=== PATIENT | male | born 1990 | race American Indian/Alaskan Native ===

== ENCOUNTER 2019-04-12 06:09 | Emergency (ER) | payer OTHER ==
[2019-04-12] MEDS ORDERED: HYDROmorphone 0.5 MG/0.5 ML Syringe IVPUSH ONE (06:44)
[2019-04-12] MEDS ORDERED: Ondansetron 4 MG/2 ML SDV IVPUSH ONE (06:44)
[2019-04-12] MEDS ORDERED: Sodium Chloride 0.9% 1,000 ML IV SCH (06:45)
--- NOTE | 2019-04-12 06:49 | EDM.PDOC ---
ED HPI GENERAL MEDICAL PROBLEM - General Chief Complaint: Laceration Stated Complaint: [facility] Time Seen by Provider: 04/12/19 06:27 Source of Information: Reports: Patient History Limitations: Reports: Altered Mental Status (Sleepy - needed to be woken numerous times to answer questions) - History of Present Illness INITIAL COMMENTS - FREE TEXT/NARRATIVE: The patient states that he was washing dishes at home around 05:30 to 06:00 this morning, when he accidentally cut his right palm. He states that the knife "came out of nowhere". He is otherwise uninjured. The patient is inordinately sleepy, and fell asleep during my questioning numerous times, requiring waking up in order to finish the history. He states that he slept last night, and got up around 05:00, therefore it is not clear why he is so sleepy. He denies recent alcohol or drug use. His last oral solid food was around 19:00 last night. He states that his last tetanus vaccination was this year. The patient does not have a PCP. Treatments [employer]: Reports: IV/IO, Other (see below) Other Treatments [employer]: Fentanyl 100 mcg, 400 cc NS Right Hand Pain Score (Numeric/FACES): 8 - Related Data Allergies Allergy/AdvReac Type Severity Reaction Status Date / Time No Known Allergies Allergy Verified 04/12/19 06:13 Home Meds: Home Meds . [No Known Home Meds] 04/12/19 [History] Past Medical History - Past Health History Medical/Surgical History: Denies Medical/Surgical History Social & Family History - Tobacco Use Smoking Status *Q: Former Smoker Years of Tobacco use: 1 Packs/Tins Daily: 0.3 Month/Year Tobacco Last Used: Quit February 2019 - Alcohol Use Alcohol Use History: No - Recreational Drug Use Recreational Drug Use: Yes Drug Use in Last 12 Months: No Recreational Drug Type: Reports: Methamphetamine Recreational Drug Use Frequency: Not Used In Over 6 Months - Living Situation & Occupation Living situation: Reports: Single, with Family (Sister) Occupation: Unemployed ED ROS GENERAL - Review of Systems Review Of Systems: ROS reveals no pertinent complaints other than HPI. ED EXAM, SKIN/RASH Exam: See Below Exam Limited By: No Limitations General Appearance: WD/WN, No Apparent Distress, Lethargic Eye Exam: Bilateral Eye: EOMI, Normal Inspection Ears: Normal External Exam, Hearing Grossly Normal Nose: Normal Inspection Throat/Mouth: Normal Inspection, Normal Lips, Normal Voice, No Airway Compromise Head: Atraumatic, Normocephalic Neck: Normal Inspection, Full Range of Motion Respiratory/Chest: No Respiratory Distress, Lungs Clear, Normal Breath Sounds, No Accessory Muscle Use Cardiovascular: Normal Peripheral Pulses, Regular Rate, Rhythm, No Edema, No Gallop, No JVD, No Murmur, No Rub Peripheral Pulses: 4+: Radial (L), Radial (R) GI/Abdominal: Normal Bowel Sounds, Soft, Non-Tender, No Organomegaly, No Distention, No Abnormal Bruit, No Mass (Male) Exam: Deferred Rectal (Males) Exam: Deferred Extremities: Other (There is a subcentimeter laceration to the palm, just medial to the midline, between the thenar and hyperthenar eminence. When exposed , there is vigorous pulsatile arterial bleeding. All of the right fingers are warm, but the patient reports decreased sensation to all fingers, and he is reluctant to move any of them.) Neurological: Slow to Respond (lethargic/sleepy) Skin: Warm, Dry, Intact Course - Vital Signs Last Recorded V/S: Last Vital Signs Temp 36.9 C 04/12/19 06:13 Pulse 87 04/12/19 06:13 Resp 18 04/12/19 06:13 BP 122/69 04/12/19 06:13 Pulse Ox 98 04/12/19 06:13 - Orders/Labs/Meds Orders: Active Orders 24 hr Category Date Time Status Sodium Chloride 0.9% @ 150 MLS/HR (1000ml Bag) Med 04/12/19 06:45 Ordered Sodium Chloride 0.9% [Normal Saline] 1,000 ml IV ASDIRECTED Medication Orders Sodium Chloride (Normal Saline) 1,000 mls @ 150 mls/hr IV ASDIRECTED FLETCHER Last Admin: 04/12/19 06:52 Dose: 150 mls/hr Meds: Medications Generic Name Dose Route Start Last Admin Trade Name Freq PRN Reason Stop Dose Admin Sodium Chloride 1,000 mls @ 150 mls/hr 04/12/19 06:45 04/12/19 06:52 Normal Saline IV 150 mls/hr ASDIRECTED FLETCHER Administration Discontinued Medications Generic Name Dose Route Start Last Admin Trade Name Freq PRN Reason Stop Dose Admin Hydromorphone HCl 0.5 mg 04/12/19 06:44 04/12/19 06:52 Dilaudid IVPUSH 04/12/19 06:45 0.5 mg ONETIME ONE Administration Lidocaine HCl Confirm 04/12/19 06:56 Xylocaine 1% Administered 04/12/19 06:57 Dose 50 ml .ROUTE .STK-MED ONE Ondansetron HCl 4 mg 04/12/19 06:44 04/12/19 06:52 Zofran IVPUSH 04/12/19 06:45 4 mg ONETIME ONE Administration - Re-Assessments/Exams Free Text/Narrative Re-Assessment/Exam: 04/12/19 06:[address] Tom at 06:40. He will come to the ED to evaluate the patient, with the intention of tying the artery off, then transferring the patient to [place]. He did not request any blood work. 04/12/19 06:49 If transferred, the patient has no preference of [facility] versus [facility]. 04/12/19 07:06 Dr. Tom is here, and has evaluated the patient. He injected 1% lidocaine without epinephrine to the area of the laceration, and applied a Doppler to the area. He found that the patient has a full arterial arch. He feels that there is median nerve damage, therefore the patient will need to be transported for treatment by a hand specialist. We attempted to contact [facility], however, there is no answer, therefore we will try [facility]. 04/12/19 07:23 Case discussed with Benito at [facility] at 07:09. Case then discussed with Dr. Michele Peoples, Plastic Surgeon at [facility], at 07:12, with Dr. Tom at my side. He expected that with 15 minutes of adequate pressure, that the bleeding was stopped, however, we explained that the trip from [place] takes about an hour, and during that time , the patient had a pressure dressing and tourniquet, yet when I removed the dressing, even with the tourniquet still on, the patient immediately started bleeding, therefore we were not optimistic that additional pressure would stop the bleeding. Dr. Tom offered to tie the artery off, however, the patient would still require a second surgery under microscope, which Dr. Peoples agreed did not make sense. The plan, then, is to reapply a pressure dressing to control the bleeding, then transfer the patient to their ED. 04/12/19 07:38 Notified by Benito at [facility] that Dr. Rosa, Emergency Physician at [facility], accepted the patient for transfer to their ED. Departure - Departure Time of Disposition: 07:22 Disposition: DC/Tfer to Acute Hospital 02 Condition: Good Clinical Impression: Injury of palmar artery of right hand - Discharge Information *PRESCRIPTION DRUG MONITORING PROGRAM REVIEWED*: No *COPY OF PRESCRIPTION DRUG MONITORING REPORT IN PATIENT TORIBIO: No Forms: ED Department Discharge - My Orders Last 24 Hours: My Active Orders 04/12/19 06:45 Sodium Chloride 0.9% @ 150 MLS/HR (1000ml Bag) Sodium Chloride 0.9% [Normal Saline] 1,000 ml IV ASDIRECTED - Assessment/Plan Last 24 Hours: My Active Orders 04/12/19 06:45 Sodium Chloride 0.9% @ 150 MLS/HR (1000ml Bag) Sodium Chloride 0.9% [Normal Saline] 1,000 ml IV ASDIRECTED
[2019-04-12] MEDS ORDERED: Lidocaine 1% 50 ML MDV ONE (06:56)
--- NOTE | 2019-04-15 07:47 | CONS ---
CONSULTING PHYSICIAN: Harry Tom MD DATE OF CONSULTATION: 04/12/2019 HISTORY OF PRESENT ILLNESS: This is a 29-year-old who was brought from [place] about an hour and hour and half ago with an accidentally inflicted knife wound to the palm of his hand. It was bleeding. He said they held pressure on it from [place] and when he tried in the emergency room, it continued to be bleeding. Nurses put direct pressure on it and controlled the bleeding. I was asked to consult concerning an arterial bleeder in the wound. The patient's history is somewhat confusing, but says he was washing dishes and knife entered in accidentally. His tetanus is current. No major medical problems he states. The patient has been given some medication of fentanyl. PHYSICAL EXAMINATION: GENERAL: Shows a slightly groggy male. LUNGS: Clear. HEART: Tones regular. VITAL SIGNS: Stable. EXTREMITIES: The hand was examined by first putting pressure on the ulnar and radial nerve, which controlled the bleeding. It was prepped with Betadine and using some 1% Xylocaine without epinephrine infiltrated in the wound. Doppler was then performed sequentially taking pressure of ulnar and radial artery demonstrating an intact arch. Fingers did show some numbness in the index and middle finger, not so much to thumb or the little finger. There was reluctance to move his hand, his fingers in flexion and extension. The wound itself measured about a centimeter and was cleaned. Dressing was re-applied and controlled the bleeding. I did discuss this case with Dr. Peoples, plastic surgeon. They did not recommend any immediate surgical intervention here and suggested transfer. ASSESSMENT: Injury to hand with damage to the arch and possible median nerve injury, possible tendon injury. MMTAWNY /[id number]
== END 2019-04-12 07:50 ==
LOC: JD.ED 06:09
DX: S65.211A Laceration of superficial palmar arch of right hand, initial encounter (principal); Z87.891 Personal history of nicotine dependence; W26.0XXA Contact with knife, initial encounter; Y92.009 Unspecified place in unspecified non-institutional (private) residence as the place of occurrence of the external cause
CPT/HCPCS: 96361; 96374; 96375; 99285; J1170; J2405; J7040